=== PATIENT | male | born 1940 | race Caucasian/White ===

== ENCOUNTER 2017-08-08 17:17 | Inpatient (IN) | payer OTHER ==
--- NOTE | 2017-08-08 18:27 | EDPHY ---
H & P Stated Complaint: weakness la rm and leg 2-5 days /[place] here [place] Time Seen by Provider: 08/08/17 18:08 HPI/ROS: CHIEF COMPLAINT: Left arm and left leg weakness HISTORY OF PRESENT ILLNESS: 68-year-old male who drove here from [place] arriving this afternoon. Patient reports 2 days ago he developed weakness and "stiffness "in his left arm. He is also reporting difficulty walking with weakness in his left leg. He does report an occipital headache. Denies chest pain, shortness of breath, palpitation, vomiting, diarrhea, nausea , or falling. Denies difficulties with speech. Denies word-finding difficulties. Patient was otherwise well prior to leaving [place]. REVIEW OF SYSTEMS: Aside from elements discussed in the HPI, a comprehensive 10-point review of systems was reviewed and is negative. PAST MEDICAL HISTORY: Coronary artery disease, status post bypass. Gout. On Plavix. No history of stroke. SOCIAL HISTORY: Here with his family. Drove here from [place]. VITAL SIGNS Reviewed by me. GENERAL: Well-developed, well-nourished, pleasant, elderly male. Here with his family HEENT: Atraumatic. Eyes: PERRL, EOMI, no nystagmus. No icterus. No injection. Mouth: moist mucous membranes. No erythema or lesions. Neck: No meningitis. Nontender to palpation. No adenopathy. LUNGS: Clear to auscultation bilaterally, no wheezes, rhonchi or rales. CARDIAC: Regular rate and rhythm, no rubs, murmurs or gallops. ABDOMEN: Soft, nontender, nondistended, bowel sounds normal. BACK: No CVA tenderness. EXTREMITIES: No trauma. No edema. . NEURO: Alert and oriented, cranial nerves II through XII are intact. At rest, patient seems to have a slight right-sided facial droop. Motor strength 4 over 5 in the left upper extremity, 4 over 5 left lower extremity. Finger-nose and heel-ha are normal given the patient's weakness in the left arm and left leg. Normal sensation. No dysarthria. SKIN: Warm and dry, no rash. PSYCHIATRIC: Normal mentation, no agitation. - Personal History Current Tetanus/Diphtheria Vaccine: Unsure - Medical/Surgical History Hx Asthma: No Hx Chronic Respiratory Disease: No Hx Diabetes: No Hx Cardiac Disease: Yes Hx Renal Disease: No Hx Cirrhosis: No Hx Alcoholism: No Hx HIV/AIDS: No Hx Splenectomy or Spleen Trauma: No Other PMH: bypass/cardiac stents gout/back surgery/hip surgerry - Social History Smoking Status: Never smoked Constitutional: Initial Vital Signs Temperature (C) 36.5 C 08/08/17 17:28 Heart Rate 84 08/08/17 17:28 Respiratory Rate 17 08/08/17 17:28 Blood Pressure 122/78 H 08/08/17 17:28 O2 Sat (%) 94 08/08/17 17:28 O2 Delivery Mode Room Air Allergies/Adverse Reactions: No Known Allergies Allergy (Verified 08/08/17 20:09) Home Medications: Medication Instructions Recorded Allopurinol [Allopurinol 300 MG 300 mg PO DAILY 08/08/17 (RX)] Aspirin EC [Aspirin EC 81 mg (*)] 81 mg PO DAILY 08/08/17 Cholecalciferol Vit D3 [Vitamin D3 50,000 unit PO WE 08/08/17 (*)] Clopidogrel Bisulfate [Plavix (*)] 75 mg PO DAILY 08/08/17 Herbals/Supplements -Info Only 1 ea PO DAILY 08/08/17 Losartan Potassium [Cozaar 50 mg 50 mg PO DAILY 08/08/17 (*)] Metoprolol Tartrate [Lopressor 50 50 mg PO DAILY 08/08/17 mg (*)] Niacin [Niacin 500 mg (*)] 1,000 mg PO DAILY 08/08/17 Nitroglycerin [Nitrostat 0.4 mg 0.4 mg SL Q5M PRN 08/08/17 (*)] Simvastatin 10 mg PO DAILY 08/08/17 Medical Decision Making - Diagnostics Imaging Results: Imaging Impressions Chest X-Ray 08/08/17 18:23 Impression: No acute thoracic abnormality. Head CT 08/08/17 18:23 Impression: 1. No acute intracranial findings. If symptoms persist and clinical suspicion warrants, consider MRI. 2. Diffuse cerebral atrophy with periventricular and subcortical low attenuation consistent with chronic microvascular ischemic gliosis. 3. Probable sequela of rheumatoid in the upper cervical spine. Findings discussed with Petra Carpenter MD 08/08/2017 at 18:56. ED Course/Re-evaluation: 68-year-old male presenting to the emergency department with left arm and left leg weakness. The symptoms started 2 days ago. Evaluation emergency department included a head CT which was negative for acute findings. Patient's laboratory data is largely unremarkable. EKG demonstrates normal sinus rhythm. Patient's course was discussed with Dr. Combs from the hospitalist service. MRI was ordered from the emergency department. Discussion was held with the patient as well as family regarding his probable CVA and the workup which will be needed. Differential Diagnosis: Differential diagnoses the patient's presenting complaints was considered including but not limited to intracranial injury, TIA, ischemic cerebrovascular accident, hemorrhagic cerebrovascular accident, hypoglycemia, complex migraine , metastases, tumor, seizure, or electrolyte abnormality Consult/Admit Bed Type: Dr. Combs, U - Data Points Laboratory Results: Laboratory Results 08/08/17 18:25 08/08/17 18:25 08/08/17 08/08/17 08/08/17 18:25 18:25 18:25 WBC 8.46 10^3/uL 10^3/uL (3.80-9.50) RBC 4.83 10^6/uL 10^6/uL (4.40-6.38) Hgb 15.6 g/dL g/dL (13.7-17.5) Hct 44.1 % % (40.0-51.0) MCV 91.3 fL fL (81.5-99.8) MCH 32.3 pg pg (27.9-34.1) MCHC 35.4 g/dL g/dL (32.4-36.7) RDW 13.0 % % (11.5-15.2) Plt Count 230 10^3/uL 10^3/uL (150-400) MPV 8.8 fL fL (8.7-11.7) Neut % (Auto) 65.8 % % (39.3-74.2) Lymph % (Auto) 23.9 % % (15.0-45.0) [place] % (Auto) 7.8 % % (4.5-13.0) Eos % (Auto) 1.4 % % (0.6-7.6) Baso % (Auto) 0.9 % % (0.3-1.7) Nucleat RBC Rel Count 0.0 % % (0.0-0.2) Absolute Neuts (auto) 5.56 10^3/uL 10^3/uL (1.70-6.50) Absolute Lymphs (auto) 2.02 10^3/uL 10^3/uL (1.00-3.00) Absolute Monos (auto) 0.66 10^3/uL 10^3/uL (0.30-0.80) Absolute Eos (auto) 0.12 10^3/uL 10^3/uL (0.03-0.40) Absolute Basos (auto) 0.08 10^3/uL 10^3/uL (0.02-0.10) Absolute Nucleated RBC 0.00 10^3/uL 10^3/uL (0-0.01) Immature Gran % 0.2 % % (0.0-1.1) Immature Gran # 0.02 10^3/uL 10^3/uL (0.00-0.10) PT 13.0 SEC SEC (12.0-15.0) INR 0.99 (0.83-1.16) Sodium 135 mEq/L mEq/L (134-144) Potassium 4.3 mEq/L mEq/L (3.5-5.2) Chloride 103 mEq/L mEq/L (97-110) Carbon Dioxide 25 mEq/l mEq/l (22-31) Anion Gap 7 mEq/L L mEq/L (8-16) BUN 18 mg/dL mg/dL (7-23) Creatinine 0.8 mg/dL mg/dL (0.7-1.3) Estimated GFR > 60 Glucose 96 mg/dL mg/dL (70-100) Calcium 9.3 mg/dL mg/dL (8.5-10.4) Troponin I < 0.012 ng/mL ng/mL (0.000-0.034) Departure - Departure Disposition: [facility] Inpatient Acute Clinical Impression: Acute ischemic stroke Condition: Fair
[2017-08-08 18:33] LABS: % IMMATURE GRANULYOCYTES 0.2 % (0.0-1.1); ABSOLUTE IMMATURE GRANULOCYTES 0.02 10^3/uL (0.00-0.10); ADD DIFF? NO; ADD MORPH? NO; ADD SCAN? NO; ATYPICAL LYMPHOCYTE FLAG 0 (0-99); FRAGMENT RBC FLAG 0 (0-99); HEMATOCRIT 44.1 % (40.0-51.0); HEMOGLOBIN 15.6 g/dL (13.7-17.5); LEFT SHIFT FLG 0 (0-99); LIPEMIA HEMOLYSIS FLAG 90 (0-99); MEAN CELL HEMOGLOBIN 32.3 pg (27.9-34.1); MEAN CELL HEMOGLOBIN CONCENTR. 35.4 g/dL (32.4-36.7); MEAN CELL VOLUME 91.3 fL (81.5-99.8); MEAN PLATELET VOLUME 8.8 fL (8.7-11.7); PLATELET CLUMPS FLAG 10 (0-99); PLATELET COUNT 230 10^3/uL (150-400); RED BLOOD CELL COUNT 4.83 10^6/uL (4.40-6.38)
--- NOTE | 2017-08-08 18:34 | CPEKG ---
Heart Rate: 74 RR Interval: 811 P-R Interval: 152 QRSD Interval: 96 QT Interval: 392 QTC Interval: 435 P [place]: 47 QRS [place]: 2 T Wave [place]: 75 EKG Severity - BORDERLINE ECG - EKG Impression: SINUS RHYTHM EKG Impression: BORDERLINE T ABNORMALITIES, ANT-LAT LEADS Electronically Signed By: Des Beaulieu 08-Aug-2017 20:23:32
[2017-08-08 18:48] LABS: INR 0.99 (0.83-1.16)
[2017-08-08 18:50] LABS: ANION GAP 7 mEq/L (8-16); CALCIUM 9.3 mg/dL (8.5-10.4); CARBON DIOXIDE 25 mEq/l (22-31); CHLORIDE 103 mEq/L (97-110); CREATININE 0.8 mg/dL (0.7-1.3); GLOMERULAR FILTRATION RATE > 60; GLUCOSE 96 mg/dL (70-100); POTASSIUM 4.3 mEq/L (3.5-5.2); SODIUM 135 mEq/L (134-144)
[2017-08-08 19:02] LABS: TROPONIN I < 0.012 ng/mL (0.000-0.034)
[2017-08-08] MEDS ORDERED: ONDANSETRON 4 MG/2 ML VIAL IVP PRN (20:55)
[2017-08-08] MEDS ORDERED: ACETAMINOPHEN 325 MG TAB PO PRN (20:55)
[2017-08-08] MEDS ORDERED: ONDANSETRON DISINTEGRATING 4 MG TAB PO PRN (20:55)
[2017-08-08] MEDS ORDERED: NITROGLYCERIN 0.4 MG BTL SL PRN (21:00)
[2017-08-08] MEDS ORDERED: IOPAMIDOL (ISOVUE 370) 100 ML BTL IV ONE (21:04)
--- NOTE | 2017-08-08 21:40 | GHP ---
[f rep st] HISTORY AND PHYSICAL DATE OF ADMISSION: 08/08/2017 CHIEF COMPLAINT: Left-sided weakness. HISTORY OF PRESENT ILLNESS: This is a 76-year-old man, who was driving from [place] to [employer] over t he past few days. Yesterday, around noon, he noticed that his left arm seemed weak. He describes th at he has difficulty picking things up, as well as doing his buttons. He says that his left leg has been weak, but he tells me that this has been weak for some time, predating yesterday. He has a hist ory of heart disease, has had a CABG, as well as stents in the past. He has never had a history of a trial fibrillation. He did not have any headache, confusion, or difficulty speaking. PAST MEDICAL/SURGICAL HISTORY: 1. Coronary artery disease, status post CABG and stents. 2. Gout. 3. Right TRINI. 4. L-spine surgery x2. MEDICATIONS: Please see medication reconciliation. ALLERGIES: No known drug allergies. FAMILY HISTORY: His father of pancreatic cancer. SOCIAL HISTORY: He occasionally drinks alcohol. He does not smoke. REVIEW OF SYSTEMS: A 10-point review of systems is conducted and is negative except per HPI. PHYSICAL EXAMINATION: VITAL SIGNS: Blood pressure is 143/85, heart rate is 76, respiration rate 15, satting at 97% on room air. Temperature is 36.5. GENERAL: The patient is a pleasant man, who is a ccompanied by his daughter, resting comfortably, in no acute distress. HEENT: Shows him to be normo cephalic, atraumatic. CARDIOVASCULAR: Shows regular rate and rhythm. No murmurs, rubs, or gallops. PULMONARY: Shows lungs clear to auscultation bilaterally. ABDOMEN: Soft, nontender, nondistended . SKIN: Showed no rash. : Showed no [place]. NEUROLOGIC: Shows him to be alert and oriented x3. He is providing full history. Cranial nerves 2-12 are intact. Motor is diminished in his left upp er extremity compared to his right, and his left lower extremity compared to his right. He has left- sided pronator drift. Sensation to light touch is intact in his upper and lower extremities. PSYCHI ATRIC: Shows normal mood and affect. LABORATORY DATA: CBC is normal. INR 0.99. Troponin is negative. DATA: 1. I discussed this with Dr. Carpenter. 2. I reviewed his head CT. This shows nothing acute, diffuse atrophy, possibly RA sequelae in his s pine. 3. Chest x-ray, which I personally viewed and interpreted, shows sequelae of a CABG. 4. EKG, which I personally viewed and interpreted, shows sinus rhythm. IMPRESSION/PLAN: This is a 76-year-old man, who likely had a cerebrovascular accident yesterday. 1. Suspected cerebrovascular accident: We will perform a full stroke workup, including echocardiogr am, CT angio of his head and neck, telemetry monitoring. Evaluated by therapies. He has already pas sed his bedside swallow study. He will be seen by Neurology as well. He is already on mostly approp riate medications, including aspirin, Plavix, and statin for his heart disease. 2. Coronary artery disease, status post coronary artery bypass graft: Troponin is negative, not hav ing chest pain. Continue his medications. 3. Gout: Continue his allopurinol. /[id number]/MODL
[2017-08-09 06:39] LABS: % IMMATURE GRANULYOCYTES 0.3 % (0.0-1.1); ABSOLUTE IMMATURE GRANULOCYTES 0.02 10^3/uL (0.00-0.10); ADD DIFF? NO; ADD MORPH? NO; ADD SCAN? NO; ATYPICAL LYMPHOCYTE FLAG 0 (0-99); FRAGMENT RBC FLAG 0 (0-99); HEMATOCRIT 41.5 % (40.0-51.0); HEMOGLOBIN 14.7 g/dL (13.7-17.5); LEFT SHIFT FLG 0 (0-99); LIPEMIA HEMOLYSIS FLAG 90 (0-99); MEAN CELL HEMOGLOBIN 32.1 pg (27.9-34.1); MEAN CELL HEMOGLOBIN CONCENTR. 35.4 g/dL (32.4-36.7); MEAN CELL VOLUME 90.6 fL (81.5-99.8); MEAN PLATELET VOLUME 9.2 fL (8.7-11.7); PLATELET CLUMPS FLAG 0 (0-99); PLATELET COUNT 207 10^3/uL (150-400); RED BLOOD CELL COUNT 4.58 10^6/uL (4.40-6.38); RED CELL DISTRIBUTION WIDTH 12.9 % (11.5-15.2)
[2017-08-09 07:37] LABS: ALANINE AMINOTRANSFERASE 39 IU/L (21-72); ALBUMIN 3.3 g/dL (3.5-5.0); ALKALINE PHOSPHATASE 68 IU/L (38-126); ANION GAP 8 mEq/L (8-16); ASPARTATE AMINOTRANSFERASE 22 IU/L (17-59); BILIRUBIN,TOTAL 0.7 mg/dL (0.1-1.4); CALCIUM 8.8 mg/dL (8.5-10.4); CARBON DIOXIDE 24 mEq/l (22-31); CHLORIDE 108 mEq/L (97-110); CHOLESTEROL 138 mg/dL (140-220); CHOLESTEROL/HDL RATIO 3.54 RATIO (1.00-4.97); CREATININE 0.7 mg/dL (0.7-1.3); GLOMERULAR FILTRATION RATE > 60; GLUCOSE 94 mg/dL (70-100); HIGH DENSITY LIPOPROTEIN 39 mg/dL (40-65); LDL/HDL RATIO 2.18 RATIO (1.00-3.64); LOW DENSITY LIPOPROTEIN 85 mg/dL (80-100); NON-HIGH DENSITY LIPOPROTEIN 99 mg/dL (90-129); POTASSIUM 4.2 mEq/L (3.5-5.2); SODIUM 140 mEq/L (134-144); TOTAL PROTEIN 5.7 g/dL (6.3-8.2); TRIGLYCERIDE 70 mg/dL (40-150); VERY LOW DENSITY LIPOPROTEINS 14 mg/dL (8-25)
[2017-08-09] MEDS ORDERED: LOSARTAN POTASSIUM 50 MG TAB PO SCH (09:00)
[2017-08-09] MEDS ORDERED: METOPROLOL TARTRATE 50 MG TAB PO SCH (09:00)
[2017-08-09] MEDS ORDERED: PRAVASTATIN SODIUM 20 MG TAB PO SCH ×2 (09:00→15:38)
[2017-08-09] MEDS: CLOPIDOGREL BISULFATE 75 MG TAB PO SCH (10:23)
[2017-08-09] MEDS: NIACIN 500 MG TAB PO SCH (10:25)
[2017-08-09] MEDS: ALLOPURINOL 300 MG TAB PO SCH (10:25)
[2017-08-09] MEDS: ASPIRIN EC 81 MG TAB PO SCH (10:25)
[2017-08-09] MEDS: ENOXAPARIN 40 MG/0.4 ML SYR SC SCH (10:30)
--- NOTE | 2017-08-09 12:14 | NEUROPROG ---
Assessment: [id number] CC: Dr. Combs consulted neurology for left sided weakness. HPI: He was driving from [place] to [place], [place] over the past few days and noted on that his left arm seemed weak. He reported long-standing left leg weakness as well which was not new. He denied headache, confusion, or speaking difficulties. He was admitted to [facility] on 08/08/17 for further evaluation. Brain MRI w/o con showed no acute stroke or acute changes. It did show significant degenerative changes in the cervical spine concerning for rheumatoid arthritis. A head/neck CTA showed an apparent chronic occlusion of the left vertebral artery. I initially saw him on 08/09/17. He had left arm weakness which he said was new and left ankle weakness which he said was chronic. I ordered a C-spine MRI w/o con to further evaluate his left arm weakness. PMHx: CAD w/ CABG and stents, gout, R TRINI, L-spine surgery x 2 Home Meds: metoprolol, losartan, zocor 10 mg qd, plavix 75 mg qd, asa 81 mg qd, nitrogylcerin, niacin, allopurinol SHx: no tobacco FHx: pancreatic cancer ROS: Pt denied acute fever, total vision loss, active severe chest pain, respiratory failure, total body severe rash, total bowel/bladder incontinence, psychosis, active seizures, or active bleeding O: VS reviewed General: Alert Eyes: Fundoscopic exam not able to visualize optic disks CV: Heart RRR, no murmur, no carotid bruit Lungs: Clear to auscultation bilaterally, no rhonci or rales Neuro: - Mental: . Oriented x person/place/date . concentration appears normal . speech fluency/comprehension normal . memory appears normal . fund of knowledge appear intact - Cranial Nerves: . II: PERRL, VFFTC . III/IV/: EOMI, no nystagmus, normal smooth pursuits, no Ptosis . V: facial sensation intact to LT . VII: face symmetric to eye closure and smile . VIII: hearing intact to conversation . IX/X: uvula raises symmetrically . XI: SCM 5/5 B/L strength . XII: tongue protrudes midline w/nl strength - Motor: . Tone: normal tone in all 4 extrem . Strength: left arm weakness 4 / 5, left ankle weakness 4+/5; right arm/ leg normal strength - Reflexes: B/L bic/BR/patella 2/4 - Sensory: all 4 extrem intact to light touch - Coord: no ataxia noted - Gait: deferred Labs: 08/09/17- CBC wnl, CMP wnl, LDL 85 Rads: 08/08/17- Brain MRI w/o con: no acute stroke, mild atrophy, mod CMVD, changes consistent with rheumatoid arthritis at C1-2 (I personally visualized the images on 08/09/17) 08/08/17- CTA head/neck: diminutive left vertebral artery which is focally occluded in the V2 and V4 segments, likely chronic Assessment: 1. Transient Left Arm Weakness: Brain MRI shows no acute stroke and his left arm weakness has persisted. Concern for cervical myelopathy or radiculopathy so I will obtain a C-spine MRI. 2. Chronic Left Leg weakness in setting of prior Lumbar surgeries: appears to be a chronic condition, nothing acute to do as this time 3. Prior CABG for CAD 4. Chronic Left Vertebral Artery Occlusion: Recommend life-long stroke prevention measures to include intensive statin control (LDL < 70), H1AC< 7.0, bp < 140/90, and agree with dual platelet therapy (ASA/plavix). Plan: - 24 hour telemetry - TTE - C-spine MRI w/o con - given left vert occlusion, recommend working with PCM for blood pressure < 140 /90, H1AC < 7.0, and LDL < 70 - Recommend adjusting cholesterol medication for LDL goal < 70 - Continue plavix 75 mg qd and aspirin 81 mg qd - PT consult - F/U in neurology clinic 4-6 weeks after hospital discharge Objective: Vital Signs Temp Pulse Resp BP Pulse Ox 37.0 C 67 18 121/67 H 94 08/09/17 00:00 08/09/17 08:07 08/09/17 08:07 08/09/17 08:07 08/09/17 08:07 Laboratory Results 08/09/17 06:36 08/09/17 06:36 PT 13.0 SEC (12.0-15.0) 08/08/17 18:25 INR 0.99 (0.83-1.16) 08/08/17 18:25 Allergies/Adverse Reactions: No Known Allergies Allergy (Verified 08/08/17 20:09)
--- NOTE | 2017-08-09 13:00 | ECHO ---
[email or web address] [address] Main: [phone] Fax: Transthoracic Echocardiogram Name: NICOLE PEREZ MR#: [id number] Study Date: 08/09/2017 Study Time: 10:56 AM Date of : 1940 Age: 76 year(s) Height: 175.3 cm (69 in.) Weight: 82.55 kg (182 lb.) BSA: 1.98 m2 Gender: Male Examination: Echo Indication: ischemic stroke; r/o PFO and h/o CABG Image Quality: Technically Difficult Contrast: Requested by: Romeo Combs BP: 106 mmHg/52 mmHg Heart Rate: Rhythm: Indication: ischemic stroke; r/o PFO and h/o CABG Procedure Staff Internal Audit Director: Wanda Delgado Physician: Efrem Block Requesting Provider: Conclusions: Normal left ventricular systolic function left ventricular hypertrophy aortic valve sclerosis without significant flow abnormalities. Measurements: Chambers Valvular Assessment AV/MV Valvular Assessment TV/PV Normal Normal Normal Name Value Range Name Value Range Name Value Range Ao Inge (MM): 3.6 cm (2.2 cm-3.7 AV Vmax: 1.02 m/s (1 m/s-1.7 PV Vmax: 0.78 m/s (0.6 m/s-0.9 cm) m/s) m/s) IVSd (2D): 1.0 cm (0.6 cm-1.1 AV maxP mmHg ( - ) PV PGmax: 2 mmHg ( - ) cm) LVOT Vmax: 0.65 m/s (0.7 m/s-1.1 LVDd (2D): 3.6 cm (4.2 cm-5.9 m/s) cm) [place]LE (Vmax): 2.2 cm2 ( - ) LVDs (2D): 2.9 cm (2.1 cm-4 MV E Vmax: 0.36 m/s ( - ) cm) MV A Vmax: 0.44 m/s ( - ) LVPWd (2D): 1.0 cm (0.6 cm-1 MV E/A: 0.82 ( - ) cm) LVOTd 2.1 cm 2.1 cm mm LVEF (BP): 49 % (>=55 %) EF Range: 50-55 % Continued Measurements: Chambers Valvular Assessment AV/MV Name Value Name Value LADs Lon.3 cm MV DecTime: 222 m/s LA Area: 14.8 cm2 MV E/E' Septal: 6.30 LA Volume: 29 ml MV E/E' Lateral: 6.90 LA Volume Index: 14.6 ml/m2 Patient: NICOLE PEREZ Study Date: 08/09/2017 Page 1 of 2 10:56 AM RA Area: 14.8 cm2 Additional Vessels Name Value Ao Ascendin.6 cm Findings: Left Ventricle: Normal size left ventricle. Borderline concentric LV hypertrophy. Low normal left ventricular systolic function. The ejection fraction is estimated to be 50-55 %. Right Ventricle: Normal size right ventricle. Normal RV function. Left Atrium: The left atrium is normal in size. An agitated saline study was performed and was negative at rest and positive with Valsalva maneuver. Right Atrium: The right atrium is normal in size. Mitral Valve: There is mild thickening of the mitral valve leaflets. Trivial mitral valve regurgitation. Aortic Valve: The aortic valve is tri-leaflet. Mild aortic cusp calcification is noted. There is no aortic valve regurgitation. Tricuspid Valve: The tricuspid valve appears normal. There is no tricuspid valve regurgitation. Pulmonic Valve: Pulmonary valve not well visualized. Aorta: Normal size aortic root measuring 3.6 cm. Normal size ascending aorta measuring 3.6 cm. Pericardium: No pericardial effusion. (No Signature Object) Patient: NICOLE PEREZ Study Date: 08/09/2017 Page 2 of 2 10:56 AM [id number]
--- NOTE | 2017-08-09 15:45 | HOSPPROG ---
Hospitalist Progress Note Assessment/Plan: New patient encounter. Record reviewed 76 yo male with left sided are weakness admitted for stroke w/u. Stroke w/u has been negative including brain MRI. CTA did show Left vertebral focal occlusion which per Neurologist note, it is chronic. On imaging, there was some e/o RA on c1/c2 and an MRI of the cervical spine is pending. He continues to have left arm weakness but is slightly improved. Apparently, the weakness was transient and not present during Neuro's evaluation earlier. #Left arm weakness, etiology unclear -no e/o stroke -?Cervical Myelopathy vs radiculopathy -MRI cervical spine is pending #Chronic Left leg weakness #Chronic Left vertebral artery occlusion #CAD, s/p CABG #HLD, LDL 85. Reports on statin at current dose x several years. Plan: -PT/OT to see, per his report, he has not seen them -Increase Simvastatin to 30mg PO daily. LDL goal less than 70 -BP goal less than 140/90 -Check A1C -cont Aspirin and Plavix -change to inpatient, although anticipate discharge tomorrow Subjective: still with left sided arm weakness. No CP or SOB Objective: Vital Signs Temp Pulse Resp BP Pulse Ox 36.6 C 74 20 121/73 H 98 08/09/17 14:10 08/09/17 14:10 08/09/17 14:10 08/09/17 14:10 08/09/17 14:10 Laboratory Results 08/09/17 06:36 08/09/17 06:36 PT 13.0 SEC (12.0-15.0) 08/08/17 18:25 INR 0.99 (0.83-1.16) 08/08/17 18:25 - Physical Exam Constitutional: no apparent distress, appears nourished, not in pain Eyes: PERRL, anicteric sclera, EOMI Ears, Nose, Mouth, Throat: moist mucous membranes Cardiovascular: regular rate and rhythym, no murmur, rub, or gallop Respiratory: no respiratory distress, no rales or rhonchi, clear to auscultation Gastrointestinal: normoactive bowel sounds, soft, non-tender abdomen, no palpable masses Skin: warm (left arm weakness) Neurologic: AAOx3 Psychiatric: interacting appropriately, not anxious, not encephalopathic, thought process linear ICD10 Worksheet Patient Problems: Problems Problem Status Onset Acute ischemic stroke Acute
[2017-08-10 03:50] VITALS: O2SAT 94
[2017-08-10 06:25] LABS: ANION GAP 6 mEq/L (8-16); CALCIUM 8.7 mg/dL (8.5-10.4); CARBON DIOXIDE 24 mEq/l (22-31); CHLORIDE 110 mEq/L (97-110); CREATININE 0.8 mg/dL (0.7-1.3); GLOMERULAR FILTRATION RATE > 60; GLUCOSE 102 mg/dL (70-100); POTASSIUM 4.2 mEq/L (3.5-5.2); SODIUM 140 mEq/L (134-144)
[2017-08-10 07:28] VITALS: BP 117/70; PULSE 65; RESP 16; TEMP 97.8
--- NOTE | 2017-08-10 07:59 | NEUROPROG ---
Assessment: C-spine MRI showed severe stenosis as the likely cause of his left arm weakness so I consulted neurosurgery. They will see patient today. Objective: Vital Signs Temp Pulse Resp BP Pulse Ox 36.6 C 65 16 117/70 94 08/10/17 07:25 08/10/17 07:25 08/10/17 07:25 08/10/17 07:25 08/10/17 07:25 Laboratory Results 08/10/17 05:50 08/09/17 08/10/17 08/11/17 05:59 05:59 05:59 Intake Total 400 Balance 400 PT 13.0 SEC (12.0-15.0) 08/08/17 18:25 INR 0.99 (0.83-1.16) 08/08/17 18:25 Allergies/Adverse Reactions: No Known Allergies Allergy (Verified 08/08/17 20:09)
--- NOTE | 2017-08-10 09:43 | PDMN ---
Medical Necessity Medical necessity: change to IP; los >2 mn for continued workup of L arm weakness of unclear etiology r/o cervical myelopathy vs radiculopathy; requires PT/OT, med adjustment; comorbid CAD/CABG & HLD; per progress note & order
[2017-08-10] MEDS: ALLOPURINOL 300 MG TAB PO SCH (09:54)
[2017-08-10] MEDS: NIACIN 500 MG TAB PO SCH (09:54)
[2017-08-10] MEDS: CLOPIDOGREL BISULFATE 75 MG TAB PO SCH (09:55)
[2017-08-10] MEDS: ENOXAPARIN 40 MG/0.4 ML SYR SC SCH (09:55)
[2017-08-10] MEDS: ASPIRIN EC 81 MG TAB PO SCH (09:55)
--- NOTE | 2017-08-10 10:33 | HOSPPROG ---
Hospitalist Progress Note Assessment/Plan: 76 yo male with left sided are weakness admitted for stroke w/u. Stroke w/u has been negative including brain MRI. CTA did show Left vertebral focal occlusion which per Neurologist note, it is chronic. TTE unremarkable. On imaging, there was some e/o RA on c1/c2. MRI cervical spine shows severe stenosis at C1/C2. Awaiting a neurosurgery consult for recommendations going forward. #Left arm weakness, likely due to severe C1/C2 stenosis. No e/o of acute stroke -NS reccs pending #Chronic Left leg weakness #Chronic Left vertebral artery occlusion #CAD, s/p CABG -risk factor reduction -Statin -A1C pending -cont Plavix and Aspirin -BP goal less than 140/90 #HLD, LDL 85. Increased Simvastatin to 30mg po daily. LDL goal per Neuro is less than 70. Dispo: awaiting Neuro reccs. Subjective: still with left arm weakness. NS has been consulted. Awaiting reccs. No Cp or SOB. No N/V Objective: Vital Signs Temp Pulse Resp BP Pulse Ox 36.6 C 65 16 117/70 94 08/10/17 07:25 08/10/17 07:25 08/10/17 07:25 08/10/17 07:25 08/10/17 07:25 Laboratory Results 08/10/17 05:50 08/09/17 08/10/17 08/11/17 05:59 05:59 05:59 Intake Total 400 Balance 400 PT 13.0 SEC (12.0-15.0) 08/08/17 18:25 INR 0.99 (0.83-1.16) 08/08/17 18:25 - Physical Exam Constitutional: no apparent distress, appears nourished, not in pain Eyes: PERRL, anicteric sclera, EOMI Ears, Nose, Mouth, Throat: moist mucous membranes, hearing normal, ears appear normal, no oral mucosal ulcers Cardiovascular: regular rate and rhythym, no murmur, rub, or gallop Respiratory: no respiratory distress, no rales or rhonchi, clear to auscultation Gastrointestinal: normoactive bowel sounds Skin: warm Neurologic: AAOx3 Psychiatric: interacting appropriately, not anxious, not encephalopathic ICD10 Worksheet Patient Problems: Problems Problem Status Onset Acute ischemic stroke Acute
[2017-08-10 11:45] LABS: HEMOGLOBIN A1C 5.8 % (4.0-6.0)
--- NOTE | 2017-08-10 12:42 | NEUROPROG ---
Assessment: [id number] CC: F/U for left arm weakness, severe cervical stenosis Narrative Summary: He was driving from [place] to [place], [place] over the past few days and noted on that his left arm seemed weak. He reported long-standing left leg weakness as well which was not new. He denied headache, confusion, or speaking difficulties. He was admitted to [facility] on 08/08/17 for further evaluation. Brain MRI w/o con showed no acute stroke or acute changes. It did show significant degenerative changes in the cervical spine concerning for rheumatoid arthritis. A head/neck CTA showed an apparent chronic occlusion of the left vertebral artery. I initially saw him on 08/09/17. He had left arm weakness which he said was new and left ankle weakness which he said was chronic. I ordered a C-spine MRI w/o con to further evaluate his left arm weakness. HPI: F/U 08/10/17. The C-spine MRI showed severe C1/2 spinal stenosis which appears to be the likely cause of his arm weakness. I will ask if neurosurgery will take a look at him. He otherwise denied new complaints. PMHx: CAD w/ CABG and stents, gout, R TRINI, L-spine surgery x 2 SHx: no tobacco FHx: pancreatic cancer ROS: Pt denied acute fever, total vision loss, active severe chest pain, respiratory failure, total body severe rash, total bowel/bladder incontinence, psychosis, active seizures, or active bleeding Labs: 08/09/17- CBC wnl, CMP wnl, LDL 85 Rads: 08/08/17- Brain MRI w/o con: no acute stroke, mild atrophy, mod CMVD, changes consistent with rheumatoid arthritis at C1-2 (I personally visualized the images on 08/09/17) 08/08/17- CTA head/neck: diminutive left vertebral artery which is focally occluded in the V2 and V4 segments, likely chronic 08/09/17- C-spine MRI: 1. Upper spinal cord edema at the level of C1-C2 that appears increased secondary to severe spinal stenosis from thickening of the transverse ligament along the posterior margin of the dens lung with some mild thickening of the posterior ligaments along the posterior ring. The edema is more prominent to the left of midline. 2. Multilevel degenerative disk disease with findings most prominent at C5-C6 and at C6-C7 with associated spinal and neuroforaminal stenoses. 3. Diffuse facet hypertrophy throughout the cervical spine. This also contributes to neuroforaminal Stenoses. 08/09/17- TTE: No cardioembolic source seen Assessment: 1. Transient Left Arm Weakness: Brain MRI shows no acute stroke and his left arm weakness has persisted. C-spine MRI shows severe stenosis with cord edema so likely cause of symptoms. Neurosurgery consulted. 2. Chronic Left Leg weakness in setting of prior Lumbar surgeries: appears to be a chronic condition, nothing acute to do as this time 3. Prior CABG for CAD 4. Chronic Left Vertebral Artery Occlusion: Recommend life-long stroke prevention measures to include intensive statin control (LDL < 70), H1AC< 7.0, bp < 140/90, and agree with dual platelet therapy (ASA/plavix). Plan: - given left vert occlusion, recommend working with PCM for blood pressure < 140 /90, H1AC < 7.0, and LDL < 70 - Recommend adjusting cholesterol medication for LDL goal < 70 - Continue plavix 75 mg qd and aspirin 81 mg qd - F/U in neurology clinic 4-6 weeks after hospital discharge 35 min spent with patient, majority of time spent counseling on left arm weakness and probable cause. Objective: Vital Signs Temp Pulse Resp BP Pulse Ox 36.6 C 65 16 117/70 94 08/10/17 07:25 08/10/17 07:25 08/10/17 07:25 08/10/17 07:25 08/10/17 07:25 Laboratory Results 08/10/17 05:50 08/09/17 08/10/17 08/11/17 05:59 05:59 05:59 Intake Total 400 Balance 400 PT 13.0 SEC (12.0-15.0) 08/08/17 18:25 INR 0.99 (0.83-1.16) 08/08/17 18:25 Allergies/Adverse Reactions: No Known Allergies Allergy (Verified 08/08/17 20:09)
--- NOTE | 2017-08-10 13:09 | ASMTCMCOM ---
CM Note CM Note Notes: Patient admitted for L-sided weakness and r/o stroke. No stroke detected on imaging; patient does have evidence of cervical stenosis. Neurosurg consult pending. I spoke with patient, he splits his time between [place] and [facility] and stops in [place] to see his daughter mid-trip. He plans on staying with her after d/c for whatever duration he needs to. Her name is Melita ([phone], FREEDOM is Pat [phone]). D/C needs are TBD pending neurosurg consult and PT/OT evals. CM will follow. Date Signed: 08/10/2017 01:08 PM Electronically Signed By:Jane Moran RN
[2017-08-10] MEDS ORDERED: FLU VACC QS 2017-18 (3YR+)/PF 0.5 ML SYR (FLUARIX QUAD) IM ONE (15:38)
--- NOTE | 2017-08-10 15:45 | PDDCSUM ---
Discharge Summary Discharge Summary: 76 yo male traveling from [place] admitted with left sided are weakness and stroke w/u. Stroke w/u has been negative including brain MRI. CTA did show Left vertebral focal occlusion which per Neurologist note, it is chronic. TTE unremarkable. On imaging, there was some e/o RA on c1/c2. MRI cervical spine shows severe stenosis at C1/C2 which is likely the etiology of his left arm weakness. NS provided evaluation and it was recommended that the patient f/u in an outpatient setting. He has a hx of HTN and BP has been low to target. Losartan will be held. #Left arm weakness, likely due to severe C1/C2 stenosis. No e/o of acute stroke #Chronic Left leg weakness #Chronic Left vertebral artery occlusion #CAD, s/p CABG -risk factor reduction -Statin -A1C pending -cont Plavix and Aspirin -BP goal less than 140/90 #HLD, LDL 85. Increased Simvastatin to 30mg po daily. LDL goal per Neuro is less than 70. Exam: see progress note from today Discharge Meds: see med rec. Statin increased. total time spent on discharge is 35 minutes
--- NOTE | 2017-08-10 20:34 | GCON ---
[f rep st] CONSULTATION DATE OF CONSULTATION: 08/10/2017 REASON FOR CONSULTATION: Cervical stenosis with new onset left-sided weakness. HOSPITAL COURSE/HISTORY/MAJOR MEDICAL FINDINGS: Patient is a 76-year-old gentleman who presented to [facility] Emergency Room on 08/08 because he was concerned about having new stroke-like sympt oms. He states that he started having left arm and left leg weakness which he had never had before. He does have some neck pain but only when turning his head to the right. He denies any pain at neut ral or when turning his head to the left. He denies any right upper or right lower extremity weaknes s. He has noticed some difficulty with walking since he has been in the hospital. No weakness devel oped. But denies any other imbalance at baseline. He denies any loss of bowel or bladder control or any change in dexterity. Patient denies any numbness or tingling. Past medical history is significant for some lumbar stenosis as well. He did undergo a decompression for that back in [place] sometime ago but does not have any hardware in his lower back. REVIEW OF SYSTEMS: Negative other than what is stated in the HPI. Please see for pertinent negative s, parent positives. PAST MEDICAL HISTORY: History of lumbar stenosis; history of coronary artery disease, status post CA BG and stents; gout; right TRINI. SOCIAL HISTORY: Patient will occasionally have an alcoholic beverage. He has never smoked, nor does he use illicit drugs. FAMILY HISTORY: Significant for the patient's father dying of pancreatic cancer. ALLERGIES: No known drug allergies. MEDICATIONS: Allopurinol 300 mg 1 p.o. q. day, aspirin 81 mg 1 p.o. q. day, Plavix 75 mg 1 p.o. q. d ay, Cozaar 50 mg 1 p.o. q. day, metoprolol 50 mg 1 p.o. q. day, niacin 1000 mg 1 p.o. q. day, nystati n 0.4 mg sublingually q.a.m., simvastatin 10 mg 1 p.o. q. day. PHYSICAL EXAM: VITALS: BP 117/70, heart rate is 65, he is 94% on room air. Temp is 36.6. GENERAL: The patient is no acute distress. NEUROLOGIC: He is alert and oriented x3. Answers all questions appropriately. His affect is appropriate for the given situation. Cranial nerves 2-12 are grossly intact. EOMI and PERRLA. The patient is a 5/5 in his right upper extremity including his deltoids, triceps, biceps, wrist flexors, extensors, interossei, intrinsic supply chain manager. The patient's left upper extr emity, his deltoid is a 4- out of 5 with the remaining biceps, triceps, wrist flexors, extensors, gri p and interossei being a 5- out of 5. In the patient's right lower extremity is a 5/5 in his iliopso as, hamstrings, quadriceps, plantar flexion, dorsiflexion, EHL. In the patient's left lower extremit y, he has a 5- out of 5 in his iliopsoas, hamstrings, quadriceps, plantar flexion, dorsiflexion, EHL. Negative clonus. Negative Babinski bilaterally. The patient does have a positive Delarosa's on the left. Sensation is intact the bilateral upper and bilateral lower extremities. DIAGNOSTIC REVIEW: The patient underwent a brain MRI upon coming into the emergency room which demon strated moderate periventricular disease with erosive changes and pannus at the dens and moderate mas s effect on the craniocervical junction. CTA of the neck and head demonstrated a diminutive left vertebral artery which is focally occluded at the V2 and V4 segments, likely chronic. Cervical spine MRI demonstrated upper signal cord edema at the level of C1-C2 with severe spinal sten osis and thickening of the transverse ligament along the posterior margin of the dens with some mild thickening of the posterior ligaments along the posterior ring. There is edema to the left of midlin e. Shows some multilevel degenerative disk disease, most predominant at C5-6 and C6-7 with associate d spinal canal and neural foraminal narrowing. ASSESSMENT AND PLAN: Patient is a 76-year-old gentleman who presented to [facility] Emergency Room with new onset left-sided weakness. His cervical imaging does demonstrate a pannus at C1-C2 wi th cord signal changes and edema and stenosis at C1-C2. The patient is seen both by Dr. Nixon and my self. He is a complex surgical candidate given him being on Plavix and aspirin for his cardiac disea se as well as having a diminutive left-sided vertebral artery and a more medialized right-sided verte bral artery, making surgical intervention more complex. At this point in time, given the patient's s ymptoms, it is okay for him to discharge home and follow up with us as an outpatient. Discussed with the patient that he may ultimately require surgery for this. Dr. Nixon will discuss further treatme nt course and surgical approach with his neurosurgical partners. /[id number]/MODL
== END 2017-08-10 16:05 | disposition home or self-care (01) | DRG 552 ==
LOC: F2N 08-09 13:50 → OBSVTOIN 08-09 15:39
PROVIDERS: ADMIT Student in an Organized Health Care Education/Training Program; ATTEND Student in an Organized Health Care Education/Training Program
DX: M48.02 Spinal stenosis, cervical region (principal); I25.10 Atherosclerotic heart disease of native coronary artery without angina pectoris; M10.9 Gout, unspecified; I65.02 Occlusion and stenosis of left vertebral artery; Z95.1 Presence of aortocoronary bypass graft; Z95.5 Presence of coronary angioplasty implant and graft; Z96.641 Presence of right artificial hip joint; Z23 Encounter for immunization
CPT/HCPCS: 92523-GN; 97116-GP; 97162-GP; 97165-GO; G0008; G0378; G8978-GP-CJ; G8979-GP-CI; G8987-GO-CI; G8988-GO-CI; G9168-GO-CI; G9169-GN-CI; G9170-GN-CI; J1650; Q9967

== ENCOUNTER 2017-08-28 09:11 | Inpatient (IN) | payer OTHER, BC ==
[2017-08-28] MEDS ORDERED: ceFAZolin 2 GM/SWFI 2 GM/20 ML SYR IVP ONE ×2 (09:33→09:45)
[2017-08-28] MEDS ORDERED: GABAPENTIN 300 MG CAP PO ONE (09:33)
[2017-08-28] MEDS ORDERED: ACETAMINOPHEN 500 MG TAB PO ONE (09:33)
[2017-08-28] MEDS ORDERED: LR 1,000 ML IV ONE (09:35)
[2017-08-28] MEDS ORDERED: BUPIVACAINE 0.25% 30 ML SDV ONE ×2 (09:44→12:39)
[2017-08-28] MEDS ORDERED: BACITRACIN 50,000 UNITS/10 ML SYR IRR ONE (09:44)
[2017-08-28] MEDS ORDERED: SURGIFLO MATRIX KIT WITH THROMBIN TP ONE (09:45)
[2017-08-28] MEDS ORDERED: CHLORHEXIDINE GLUC HIBICLENS 118 ML BTL TP ONE (09:45)
[2017-08-28] MEDS ORDERED: THROMBIN (BOVINE) 5,000 UNIT VIAL TP ONE (09:46)
[2017-08-28] MEDS ORDERED: ROCURONIUM 50 MG/5 ML VIAL ONE (10:40)
[2017-08-28] MEDS ORDERED: LIDOCAINE 2% 5 ML SDV ONE (10:40)
[2017-08-28] MEDS ORDERED: REMIFENTANIL HCL 1 MG VIAL ONE (11:27)
[2017-08-28] MEDS ORDERED: fentaNYL 100 MCG/2 ML INJ ONE ×2 (11:27→11:50)
[2017-08-28] MEDS ORDERED: PROPOFOL/EMULSION 500 MG/50 ML BOTTLE IV ONE (11:27)
[2017-08-28] MEDS ORDERED: PROPOFOL 200 MG/20 ML VIAL ONE ×2 (11:27→12:20)
--- NOTE | 2017-08-28 11:49 | PDHPUP ---
History & Physical Update H&P update statement: This history and physical update is based on an assessment of the patient which was completed after admission or registration (within 24 hours), but prior to the surgery/procedure. H&P update: H&P reviewed & patient examined, no change in patient's condition since H&P completed
[2017-08-28] MEDS ORDERED: DEXAMETHASONE 4 MG/ML VIAL ONE (12:46)
[2017-08-28] MEDS ORDERED: NALOXONE HCL 0.4 MG/ML INJ IVP PRN (13:26)
[2017-08-28] MEDS ORDERED: fentaNYL 100 MCG/2 ML INJ IVP PRN (13:26)
[2017-08-28] MEDS ORDERED: LABETALOL HCL 50 MG/10 ML SYR IVP PRN (13:26)
[2017-08-28] MEDS ORDERED: ALBUTEROL 3 ML DEYVIAL IH PRN (13:26)
[2017-08-28] MEDS ORDERED: ONDANSETRON 4 MG/2 ML VIAL IVP PRN ×2 (13:26→14:12)
[2017-08-28] MEDS ORDERED: OXYCODONE/APAP 5/325 TAB PO PRN (13:26)
[2017-08-28] MEDS ORDERED: LR 500 ML IV PRN (13:26)
[2017-08-28] MEDS ORDERED: ACETAMINOPHEN 500 MG TAB PO PRN (13:26)
[2017-08-28] MEDS ORDERED: PROMETHAZINE HCL 25 MG/ML INJ IVP PRN (13:26)
--- NOTE | 2017-08-28 13:26 | PDANEPAE ---
ANE History of Present Illness presents for C1-2 laminectomy ANE Past Medical History - Cardiovascular History Hx Hypertension: Yes Hx Arrhythmias: No Hx Chest Pain: No Hx Coronary Artery / Peripheral Vascular Disease: Yes Hx CHF / Valvular Disease: No Hx Palpitations: No Cardiovascular History Comment: HYPERCHOLESTEROLEMIA - Pulmonary History Hx COPD: No Hx Asthma/Reactive Airway Disease: No Hx Recent Upper Respiratory Infection: No Hx Oxygen in Use at Home: No Hx Sleep Apnea: No Sleep Apnea Screening Result - Last Documented: Negative Pulmonary History Comment: ALLERGIES - Neurologic History Hx Cerebrovascular Accident: No Hx Seizures: No Hx Dementia: No - Endocrine History Hx Diabetes: No - Renal History Hx Renal Disorders: Yes Renal History Comment: KIDNEY STONES - LITHOTRIPSY - Liver History Hx Hepatic Disorders: No - Neurological & Psychiatric Hx Hx Neurological and Psychiatric Disorders: No - Cancer History Hx Cancer: Yes Cancer History Comment: R SCALP SKIN CA - Congenital Disorder History Hx Congenital Disorders: No - GI History Hx Gastrointestinal Disorders: No - Other Health History Other Health History: GOUT. OSTEOPOROSIS. SPINAL STENOSIS - Chronic Pain History Chronic Pain: No - Surgical History Prior Surgeries: CABG TRIPLE. STENTS X5. R TRINI. LUMBAR SURGERY ANE Review of Systems Review of systems is: negative Review of Systems: - Exercise capacity METS (RN): 3 METS ANE Patient History - Allergies Allergies/Adverse Reactions: No Known Allergies Allergy (Verified 08/08/17 20:09) - Home Medications Home medications: home medication list seen and reviewed Home Medications: Allopurinol [Allopurinol 300 MG (RX)] 300 mg PO DAILY 08/08/17 [Last Taken 08/07] Aspirin EC [Aspirin EC 81 mg (*)] 81 mg PO DAILY 08/08/17 [Last Taken 08/07/17] Cholecalciferol Vit D3 [Vitamin D3 (*)] 50,000 unit PO WE 08/08/17 [Last Taken 08/02/17] Clopidogrel Bisulfate [Plavix (*)] 75 mg PO DAILY 08/08/17 [Last Taken 08/21/17] Herbals/Supplements -Info Only 1 ea PO DAILY 08/08/17 [Last Taken 08/21/17] Metoprolol Tartrate [Lopressor 50 mg (*)] 50 mg PO DAILY 08/08/17 [Last Taken 07:00] Niacin [Niacin 500 mg (*)] 1,000 mg PO DAILY 08/08/17 [Last Taken 08/25/17] Nitroglycerin [Nitrostat 0.4 mg (*)] 0.4 mg SL Q5M PRN 08/08/17 [Last Taken Unknown] Simvastatin 10 mg PO DAILY 08/08/17 [Last Taken 08/28/17 07:00] Finasteride 08/23/17 [Last Taken 08/27/17] Losartan Potassium 08/23/17 [Last Taken 08/27/17 07:00] - NPO status NPO Since - Liquids (Date): 08/27/17 NPO Since - Liquids (Time): 23:00 NPO Since - Solids (Date): 08/27/17 NPO Since - Solids (Time): 23:00 - Anes Hx Anes Hx: no prior problems - Smoking Hx Smoking Status: Never smoked - Family Anes Hx Family Hx Anesthesia Complications: NEG ANE Labs/Vital Signs - Vital Signs Blood Pressure: 142/82 Heart Rate: 57 Respiratory Rate: 16 O2 Sat (%): 96 Height: 175.26 cm Weight: 81.647 kg ANE Physical Exam - Airway Neck exam: decreased ROM Mallampati Score: Class 2 Mouth exam: normal dental/mouth exam - Pulmonary Pulmonary: no respiratory distress - Cardiovascular Cardiovascular: regular rate and rhythym - ASA Status ASA Status: III ANE Anesthesia Plan Anesthesia Plan: general endotracheal anesthesia Lines/Monitors: arterial line Specialized Airway: video laryngoscope Urgent/Emergent Case: Elana ann completed preop but documented later for safe timely pt care
[2017-08-28] MEDS ORDERED: NITROGLYCERIN 0.4 MG BTL SL PRN (14:10)
[2017-08-28] MEDS ORDERED: LACTULOSE 20 GM/30 ML UDCUP PO PRN (14:12)
[2017-08-28] MEDS ORDERED: POLYETHYLENE GLYCOL 3350 17 GM PKT PO PRN (14:12)
[2017-08-28] MEDS ORDERED: BISACODYL 10 MG SUPP PR PRN (14:12)
[2017-08-28] MEDS ORDERED: MAGNESIUM HYDROXIDE 30 ML UDCUP PO PRN (14:12)
[2017-08-28] MEDS ORDERED: HYDROmorphONE/DILAUDID 1 MG/ML INJ IVP PRN (14:12)
[2017-08-28] MEDS ORDERED: ONDANSETRON DISINTEGRATING 4 MG TAB PO PRN (14:12)
[2017-08-28] MEDS ORDERED: diphenhydrAMINE 25 MG CAP PO PRN (14:12)
[2017-08-28] MEDS ORDERED: NS W/ 20 KCl/L 1,000 ML IV SCH (14:15)
--- NOTE | 2017-08-28 14:27 | POSTANESTH ---
Post Anesthetic Evaluation Cardiovascular Status: Normal, Stable Respiratory Status: Normal, Stable Level of Consciousness/Mental Status: Can Participate in Eval, Moderately Sleepy Pain Control: Adequate, Prn Tx Ordered Nausea/Vomiting Control: Adequate, Prn Tx Ordered Complications Possibly Related to Anesthesia: None Noted
--- NOTE | 2017-08-28 14:27 | NEUSURGPN ---
Date of Surgery: 08/28/17 Post Op Day: 0 Assessment/Plan: S: Patient in PACU. Stable with expected posterior neck pain. O: NAD, VSS PERRL, EOMI CN II-XII grossly intact No droop BUE/BLE 5/5 except LLE 4/5 dorsi/plantar Trace Delarosa's on left as was preop Sensation diminished hands/feet Incision c/d/i- steri strips A: 76 yo male sp C1/2 laminectomies for cervical stenosis with cord signal change and Left arm/leg weakness P: -Admit to med surg -Orders in -Advance diet as tolerated -Soft collar for comfort -PT/OT -May restart ASA tomorrow, Lovenox, may restart Plavix on POD #5 -Seen by Dr. Nixon in PACU Neuro Check Frequency: Q4 Urinary Catheter in Place: No - Physician Discussed Patient with Dr.: Nixon Patient Seen by Dr.: Nixon Neurosurgery Physical Exam - Vitals, I&O, Labs I and O 08/27/17 08/28/17 08/29/17 05:59 05:59 05:59 Weight 81.647 kg Vital Signs Temp Pulse Resp BP Pulse Ox 36.2 C 61 10 L 129/71 H 100 08/28/17 14:01 08/28/17 14:01 08/28/17 14:01 08/28/17 14:01 08/28/17 14:01 ICD10 Worksheet Patient Problems: Problems Problem Status Onset Acute ischemic stroke Acute
--- NOTE | 2017-08-28 14:29 | POSTOPPROG ---
Post Op Note Date of Operation: 08/28/17 Surgeon: Gerson Nixon Sales Enablement Consultant: [facility] Anesthesia: GET(General Endotracheal) Pre-op Diagnosis: Cervical stenosis with myelopathy Post-op Diagnosis: Cervical stenosis with myelopathy Procedure: C1/2 Laminectomies Inf/Abcess present in the surg proc area at time of surgery?: No Depth: Organ Space EBL: 50-100 Complications: None
--- NOTE | 2017-08-28 15:01 | GOP ---
[f rep st] OPERATIVE REPORT DATE OF OPERATION: 08/28/2017 SURGEON: Gerson Nixon MD DENTAL DETAIL REPRESENTATIVE: Maco Connors PA-C ANESTHESIA: General endotracheal. PREOPERATIVE DIAGNOSIS: Cervical myelopathy. POSTOPERATIVE DIAGNOSIS: Cervical myelopathy. PROCEDURE PERFORMED: 1. C1, C2 laminectomies. 2. Use of the operative microscope. 3. Intraoperative neurophysiological monitoring including somatosensory-evoked potentials, motor-lisa ked potentials, and free run EMG. FINDINGS: Successful C1-2 laminectomy SPECIMENS: None. ESTIMATED BLOOD LOSS: 25 cc. INDICATIONS: The patient is a 76-year-old man who presented with some increasing left arm and leg we akness. MRI of his cervical spine revealed cord signal change at C1-2 with what appears to be pannus around the C1-2 joint anteriorly and some compressive inflammatory looking tissue posteriorly as wel l. We have discussed the options extensively, both when he is in the hospital and in the clinic subs equently and presented the options of C1-2 fusion versus a trial of C1-2 partial laminectomies which would relieve the posterior compression and hopefully prevent him from worsening. He agreed to try t he lesser procedure first therefore, he presents electively today. DESCRIPTION OF PROCEDURE: After informed consent was obtained from the patient, the patient was brou ght to the operating room, and a formal time-out was performed, identifying the patient by name, [facility] record number, and date of . Preoperative antibiotics were given. The endotracheal tube wa s placed and general endotracheal anesthesia was smoothly induced. The monitoring leads were placed for somatosensory evoked and motor evoked potentials as well as EMG and baseline potentials were obta ined. The patient was then placed in the Rodas pins and turned to the prone position. All approp riate pressure points were padded and checked. The head was slightly flexed and the neck was extende d. A 2-1/2 cm incision was marked just about 1 cm inferior to the inion. The neck was then prepped and draped in the normal sterile fashion. Then, 10 cc of 0.25% Marcaine with epinephrine was infiltr ated in the skin for hemostasis. The skin incision was made using a 10 blade. The subcutaneous tiss ues were dissected using monopolar electrocautery. The fascia was opened in the midline and the avas cular plane between the strap muscles, was carefully dissected down to the C2 spinous process. Above this, the C1 arch was identified and the muscles were carefully detached from the C1 arch. The full C1 arch was exposed and the full lamina of C2 was also exposed but care was taken not to interrupt t he facet joints laterally to cause any further instability. At this point, the operative microscope was brought on the field, and the remainder of the procedure performed under high-power magnification . A lateral radiograph confirmed the appropriate level and then the high-speed drill was used to dri ll down the upper portion of the lamina of C2 and the inferior portion of the C1 arch. The inflammat ory tissue beneath the C1-2 joint was visualized and this was somewhat compressive. The Kerrison pun ches were used to underbite the bone getting a wide decompression under C1 and C2. All the inflammat ory tissue was removed and the dura was completely free. All bleeding was controlled with bipolar el ectrocautery. The bone edges were waxed generously and there was no further bleeding. The wound was copiously irrigated using bacitracin irrigation. The motor-evoked potentials, and somatosensory lisa ked potentials had improved slightly from the baseline values. At this point, the wound was inspecte d, there was no further bleeding. The fascia was closed in the midline using interrupted 0 Vicryl. The deep dermis was closed using interrupted 2-0 Vicryl. The skin was closed using Steri-Strips. St erile dressings were placed. The patient was awakened in the operating room where he was extubated a nd he was transferred to the PACU in stable condition. There were no operative complications. I was scrubbed for the entire procedure. DRAINS: None. FLUIDS AND URINE OTPUT: Per the anesthesia record. /[id number]/MODL
[2017-08-28] MEDS: oxyCODONE IR 5 MG TAB PO PRN ×2 (16:00→21:45)
[2017-08-28] MEDS: METHOCARBAMOL 750 MG TAB PO PRN ×2 (16:00→21:45)
[2017-08-28] MEDS: ceFAZolin 2 GM/DEXTROSE 100 ML IV SCH (21:40)
[2017-08-28] MEDS: SENNOSIDES/DOCUSATE SODIUM TAB PO SCH (21:45)
[2017-08-28] MEDS: FAMOTIDINE 20 MG TAB PO SCH (21:45)
[2017-08-28] MEDS ORDERED: ACETAMINOPHEN 500 MG TAB PO SCH (22:00)
[2017-08-29] MEDS: METHOCARBAMOL 750 MG TAB PO PRN ×2 (02:07→12:34)
[2017-08-29] MEDS: oxyCODONE IR 5 MG TAB PO PRN ×3 (02:07→18:13)
[2017-08-29] MEDS: ceFAZolin 2 GM/DEXTROSE 100 ML IV SCH (04:57)
[2017-08-29] MEDS: ASPIRIN EC 81 MG TAB PO SCH (08:10)
[2017-08-29] MEDS: METOPROLOL TARTRATE 50 MG TAB PO SCH (08:10)
[2017-08-29] MEDS: FAMOTIDINE 20 MG TAB PO SCH ×2 (08:10→21:08)
[2017-08-29] MEDS: PRAVASTATIN SODIUM 20 MG TAB PO SCH (08:11)
[2017-08-29] MEDS: SENNOSIDES/DOCUSATE SODIUM TAB PO SCH ×2 (08:12→21:08)
--- NOTE | 2017-08-29 08:31 | NEUSURGPN ---
Assessment/Plan: 76y/o male s/p C1 and C2 lamenectomy -Optimize pain management -Soft collar -PT/OT; patient was unsteady prior to surgery and may benefit from rehab post surgery -DVT prophx: TEDs, SCDs, Lovenox POD3 -Please notify NS with any change in neuro/motor exam -Patient was seen by Dr. Nixon and myself this morning Subjective: Some posterior neck pain. Denies any new arm pain. leg strength improved. Objective: NAD A&Ox3 MAEx4 5/5 and equal in BUE and BLE. Incision c/d/i - Physician Patient Seen by : Hussain Neurosurgery Physical Exam - Vitals, I&O, Labs I and O 08/28/17 08/29/17 08/30/17 05:59 05:59 05:59 Intake Total 4488 Output Total 1999 Balance 2488 Weight 81.647 kg Intake: Oral (ml) 2115 IV Intake (ml) 1450 IV Infused (ml) 923 NS W/ 20 KCl/L 1,000 ml @ 723 100 mls/hr IV CONT MARILOU Rx#:[id number] ceFAZolin 2 GM/DEXTROSE 200 100 ml @ 200 mls/hr IV Q8H MARILOU Rx#:[id number] Output: Urine (ml) 1950 Catheter 1000 Urinal 950 Estimated Blood Loss (ml) 50 Other: Intake Quantity Yes Sufficient Number of Voids Catheter 1 Urinal 2 Bladder Scan Volume (ml) Urinal 403 Vital Signs Temp Pulse Resp BP Pulse Ox 36.5 C 59 L 18 129/77 H 98 08/29/17 07:54 08/29/17 08:10 08/29/17 07:54 08/29/17 08:10 08/29/17 07:54 ICD10 Worksheet Patient Problems: Problems Problem Status Onset Acute ischemic stroke Acute
--- NOTE | 2017-08-29 08:31 | NEUSURGPN ---
Assessment/Plan: 76y/o male s/p C1 and C2 lamenectomy -Optimize pain management -Soft collar -PT/OT; patient was unsteady prior to surgery and may benefit from rehab post surgery -DVT prophx: TEDs, SCDs, Lovenox POD3 -Please notify NS with any change in neuro/motor exam -Patient was seen by Dr. Nixon and myself this morning Subjective: Some posterior neck pain. Denies any new arm pain. leg strength improved. Objective: NAD A&Ox3 MAEx4 5/5 and equal in BUE and BLE. Incision c/d/i - Physician Patient Seen by : Hussain Neurosurgery Physical Exam - Vitals, I&O, Labs I and O 08/28/17 08/29/17 08/30/17 05:59 05:59 05:59 Intake Total 4488 Output Total 1999 Balance 2488 Weight 81.647 kg Intake: Oral (ml) 2115 IV Intake (ml) 1450 IV Infused (ml) 923 NS W/ 20 KCl/L 1,000 ml @ 723 100 mls/hr IV CONT MARILOU Rx#:[id number] ceFAZolin 2 GM/DEXTROSE 200 100 ml @ 200 mls/hr IV Q8H MARILOU Rx#:[id number] Output: Urine (ml) 1950 Catheter 1000 Urinal 950 Estimated Blood Loss (ml) 50 Other: Intake Quantity Yes Sufficient Number of Voids Catheter 1 Urinal 2 Bladder Scan Volume (ml) Urinal 403 Vital Signs Temp Pulse Resp BP Pulse Ox 36.5 C 59 L 18 129/77 H 98 08/29/17 07:54 08/29/17 08:10 08/29/17 07:54 08/29/17 08:10 08/29/17 07:54 ICD10 Worksheet Patient Problems: Problems Problem Status Onset Acute ischemic stroke Acute
--- NOTE | 2017-08-29 08:31 | NEUSURGPN ---
Assessment/Plan: 76y/o male s/p C1 and C2 lamenectomy -Optimize pain management -Soft collar -PT/OT; patient was unsteady prior to surgery and may benefit from rehab post surgery -DVT prophx: TEDs, SCDs, Lovenox POD3 -Please notify NS with any change in neuro/motor exam -Patient was seen by Dr. Nixon and myself this morning Subjective: Some posterior neck pain. Denies any new arm pain. leg strength improved. Objective: NAD A&Ox3 MAEx4 5/5 and equal in BUE and BLE. Incision c/d/i - Physician Patient Seen by : Hussain Neurosurgery Physical Exam - Vitals, I&O, Labs I and O 08/28/17 08/29/17 08/30/17 05:59 05:59 05:59 Intake Total 4488 Output Total 1999 Balance 2488 Weight 81.647 kg Intake: Oral (ml) 2115 IV Intake (ml) 1450 IV Infused (ml) 923 NS W/ 20 KCl/L 1,000 ml @ 723 100 mls/hr IV CONT MARILOU Rx#:[id number] ceFAZolin 2 GM/DEXTROSE 200 100 ml @ 200 mls/hr IV Q8H MARILOU Rx#:[id number] Output: Urine (ml) 1950 Catheter 1000 Urinal 950 Estimated Blood Loss (ml) 50 Other: Intake Quantity Yes Sufficient Number of Voids Catheter 1 Urinal 2 Bladder Scan Volume (ml) Urinal 403 Vital Signs Temp Pulse Resp BP Pulse Ox 36.5 C 59 L 18 129/77 H 98 08/29/17 07:54 08/29/17 08:10 08/29/17 07:54 08/29/17 08:10 08/29/17 07:54 ICD10 Worksheet Patient Problems: Problems Problem Status Onset Acute ischemic stroke Acute
[2017-08-29] MEDS ORDERED: NON-FORMULARY NEW DRUG (Simvastatin [Simvastatin] 10 MG) PO SCH (09:00)
[2017-08-29] MEDS: LOSARTAN POTASSIUM 50 MG TAB PO SCH (09:27)
[2017-08-29] MEDS: FINASTERIDE 5 MG TAB PO SCH (09:27)
[2017-08-29] MEDS: ALLOPURINOL 300 MG TAB PO SCH (09:27)
[2017-08-29] MEDS: CALCIUM CARBONATE 500 MG TAB PO SCH (09:27)
--- NOTE | 2017-08-29 11:03 | ASMTCMCOM ---
CM Note CM Note Notes: Patient is POD #1 cervical lami. I spoke with patient who hopes to discharge to his daughter's home. His other daughter is flying in from [place] to help, as well. He feels that he will have good support at home and is amenable to homecare PT/OT, as well. Today's initial PT evmelvin suggests home with homecare, but CM will continue to evaluate. Current CM discharge plan: home (with daughters) and home PT/OT Date Signed: 08/29/2017 11:02 AM Electronically Signed By:Jane Moran RN
[2017-08-29] MEDS: NIACIN 500 MG TAB PO SCH (11:40)
--- NOTE | 2017-08-29 15:24 | ASMTCMCOM ---
CM Note CM Note Notes: After I spoke with patient, both PT and OT approached me recommending SNF. I called patient's daughter Melita to discuss. Melita was amenable to SNF ([facility]) if it was only a 2-4 day stay. I informed her that the facility would make that decision and that most patients stay at least one week. I encouraged her to call [facility] and speak with them directly. Melita then decided that patient would be well cared for at home by her sister, who is flying in from [place] with the sole intention of providing 24/7 care. We would augment this with home PT/OT. Tomorrow's PT/OT evals will provide more information, and CM will follow up with patient, Melita, and therapists to formulate a safe discharge plan. Date Signed: 08/29/2017 03:23 PM Electronically Signed By:Jane Moran RN
--- NOTE | 2017-08-29 15:24 | ASMTCMCOM ---
CM Note CM Note Notes: After I spoke with patient, both PT and OT approached me recommending SNF. I called patient's daughter Melita to discuss. Melita was amenable to SNF ([facility]) if it was only a 2-4 day stay. I informed her that the facility would make that decision and that most patients stay at least one week. I encouraged her to call [facility] and speak with them directly. Melita then decided that patient would be well cared for at home by her sister, who is flying in from [place] with the sole intention of providing 24/7 care. We would augment this with home PT/OT. Tomorrow's PT/OT evals will provide more information, and CM will follow up with patient, Melita, and therapists to formulate a safe discharge plan. Date Signed: 08/29/2017 03:23 PM Electronically Signed By:Jane Moran RN
--- NOTE | 2017-08-29 15:24 | ASMTCMCOM ---
CM Note CM Note Notes: After I spoke with patient, both PT and OT approached me recommending SNF. I called patient's daughter Melita to discuss. Melita was amenable to SNF ([facility]) if it was only a 2-4 day stay. I informed her that the facility would make that decision and that most patients stay at least one week. I encouraged her to call [facility] and speak with them directly. Melita then decided that patient would be well cared for at home by her sister, who is flying in from [place] with the sole intention of providing 24/7 care. We would augment this with home PT/OT. Tomorrow's PT/OT evals will provide more information, and CM will follow up with patient, Melita, and therapists to formulate a safe discharge plan. Date Signed: 08/29/2017 03:23 PM Electronically Signed By:Jane Moran RN
--- NOTE | 2017-08-30 07:17 | NEUSURGPN ---
Date of Surgery: 08/28/17 Post Op Day: 2 Assessment/Plan: Assessment: 76 y/o male s/p C1 and C2 lamenectomy POD #2 Plan -Optimize pain management-CPM -Soft collar as directed -PT/OT; patient was unsteady prior to surgery and may benefit from rehab post surgery-better now -pending placement to rehab/SNF -DVT prophx: TEDs, SCDs, Lovenox POD3 -Please notify NS with any change in neuro/motor exam -d/w Dr Nixon -call with any questions or concerns -pt understands and agrees Subjective: Awake and alert. No new complaints or concerns. No kwan/cp/sob/abd or gu complaints. No f/c/n/v/d. Objective: NAD A&Ox3 MAEx4 5/5 and equal in BUE and BLE except for 5-/5 to left tricep Incision c/d/i Neuro Check Frequency: per routine Urinary Catheter in Place: No - Physician Discussed Patient with : Hussain Neurosurgery Physical Exam - Vitals, I&O, Labs I and O 08/29/17 08/30/17 08/31/17 05:59 05:59 05:59 Intake Total 4488 860 Output Total 1999 1650 Balance 2488 -790 Weight 81.647 kg Intake: Oral (ml) 2115 860 IV Intake (ml) 1450 IV Infused (ml) 923 NS W/ 20 KCl/L 1,000 ml @ 723 100 mls/hr IV CONT MARILOU Rx#:[id number] ceFAZolin 2 GM/DEXTROSE 200 100 ml @ 200 mls/hr IV Q8H MARILOU Rx#:[id number] Output: Urine (ml) 1950 1650 Catheter 1000 Toilet 1400 Urinal 950 250 Estimated Blood Loss (ml) 50 Other: Intake Quantity Yes Yes Sufficient Number of Voids Catheter 1 Toilet 1 Urinal 2 1 Bladder Scan Volume (ml) Urinal 403 Vital Signs Temp Pulse Resp BP Pulse Ox 36.6 C 69 15 140/80 H 91 L 08/30/17 03:46 08/30/17 03:46 08/30/17 03:46 08/30/17 03:46 08/30/17 03:46 ICD10 Worksheet Patient Problems: Problems Problem Status Onset Acute ischemic stroke Acute
--- NOTE | 2017-08-30 07:17 | NEUSURGPN ---
Date of Surgery: 08/28/17 Post Op Day: 2 Assessment/Plan: Assessment: 76 y/o male s/p C1 and C2 lamenectomy POD #2 Plan -Optimize pain management-CPM -Soft collar as directed -PT/OT; patient was unsteady prior to surgery and may benefit from rehab post surgery-better now -pending placement to rehab/SNF -DVT prophx: TEDs, SCDs, Lovenox POD3 -Please notify NS with any change in neuro/motor exam -d/w Dr Nixon -call with any questions or concerns -pt understands and agrees Subjective: Awake and alert. No new complaints or concerns. No kwan/cp/sob/abd or gu complaints. No f/c/n/v/d. Objective: NAD A&Ox3 MAEx4 5/5 and equal in BUE and BLE except for 5-/5 to left tricep Incision c/d/i Neuro Check Frequency: per routine Urinary Catheter in Place: No - Physician Discussed Patient with : Hussain Neurosurgery Physical Exam - Vitals, I&O, Labs I and O 08/29/17 08/30/17 08/31/17 05:59 05:59 05:59 Intake Total 4488 860 Output Total 1999 1650 Balance 2488 -790 Weight 81.647 kg Intake: Oral (ml) 2115 860 IV Intake (ml) 1450 IV Infused (ml) 923 NS W/ 20 KCl/L 1,000 ml @ 723 100 mls/hr IV CONT MARILOU Rx#:[id number] ceFAZolin 2 GM/DEXTROSE 200 100 ml @ 200 mls/hr IV Q8H MARILOU Rx#:[id number] Output: Urine (ml) 1950 1650 Catheter 1000 Toilet 1400 Urinal 950 250 Estimated Blood Loss (ml) 50 Other: Intake Quantity Yes Yes Sufficient Number of Voids Catheter 1 Toilet 1 Urinal 2 1 Bladder Scan Volume (ml) Urinal 403 Vital Signs Temp Pulse Resp BP Pulse Ox 36.6 C 69 15 140/80 H 91 L 08/30/17 03:46 08/30/17 03:46 08/30/17 03:46 08/30/17 03:46 08/30/17 03:46 ICD10 Worksheet Patient Problems: Problems Problem Status Onset Acute ischemic stroke Acute
--- NOTE | 2017-08-30 07:17 | NEUSURGPN ---
Date of Surgery: 08/28/17 Post Op Day: 2 Assessment/Plan: Assessment: 76 y/o male s/p C1 and C2 lamenectomy POD #2 Plan -Optimize pain management-CPM -Soft collar as directed -PT/OT; patient was unsteady prior to surgery and may benefit from rehab post surgery-better now -pending placement to rehab/SNF -DVT prophx: TEDs, SCDs, Lovenox POD3 -Please notify NS with any change in neuro/motor exam -d/w Dr Nixon -call with any questions or concerns -pt understands and agrees Subjective: Awake and alert. No new complaints or concerns. No kwan/cp/sob/abd or gu complaints. No f/c/n/v/d. Objective: NAD A&Ox3 MAEx4 5/5 and equal in BUE and BLE except for 5-/5 to left tricep Incision c/d/i Neuro Check Frequency: per routine Urinary Catheter in Place: No - Physician Discussed Patient with : Hussain Neurosurgery Physical Exam - Vitals, I&O, Labs I and O 08/29/17 08/30/17 08/31/17 05:59 05:59 05:59 Intake Total 4488 860 Output Total 1999 1650 Balance 2488 -790 Weight 81.647 kg Intake: Oral (ml) 2115 860 IV Intake (ml) 1450 IV Infused (ml) 923 NS W/ 20 KCl/L 1,000 ml @ 723 100 mls/hr IV CONT MARILOU Rx#:[id number] ceFAZolin 2 GM/DEXTROSE 200 100 ml @ 200 mls/hr IV Q8H MARILOU Rx#:[id number] Output: Urine (ml) 1950 1650 Catheter 1000 Toilet 1400 Urinal 950 250 Estimated Blood Loss (ml) 50 Other: Intake Quantity Yes Yes Sufficient Number of Voids Catheter 1 Toilet 1 Urinal 2 1 Bladder Scan Volume (ml) Urinal 403 Vital Signs Temp Pulse Resp BP Pulse Ox 36.6 C 69 15 140/80 H 91 L 08/30/17 03:46 08/30/17 03:46 08/30/17 03:46 08/30/17 03:46 08/30/17 03:46 ICD10 Worksheet Patient Problems: Problems Problem Status Onset Acute ischemic stroke Acute
[2017-08-30 08:03] VITALS: RESP 14
[2017-08-30] MEDS ORDERED: ENOXAPARIN 40 MG/0.4 ML SYR SC SCH (09:00)
[2017-08-30] MEDS ORDERED: CHOLECALCIFEROL VIT D3 50,000 UNIT CAP PO SCH (09:00)
[2017-08-30] MEDS: ASPIRIN EC 81 MG TAB PO SCH (09:49)
[2017-08-30] MEDS: FINASTERIDE 5 MG TAB PO SCH (09:49)
[2017-08-30] MEDS: oxyCODONE IR 5 MG TAB PO PRN (09:49)
[2017-08-30] MEDS: SENNOSIDES/DOCUSATE SODIUM TAB PO SCH (09:49)
[2017-08-30] MEDS: METHOCARBAMOL 750 MG TAB PO PRN (09:49)
[2017-08-30] MEDS: NIACIN 500 MG TAB PO SCH (09:50)
[2017-08-30] MEDS: CALCIUM CARBONATE 500 MG TAB PO SCH (09:50)
[2017-08-30] MEDS: LOSARTAN POTASSIUM 50 MG TAB PO SCH (09:50)
[2017-08-30] MEDS: PRAVASTATIN SODIUM 20 MG TAB PO SCH (09:51)
[2017-08-30] MEDS: ALLOPURINOL 300 MG TAB PO SCH (09:51)
[2017-08-30] MEDS: FAMOTIDINE 20 MG TAB PO SCH (09:51)
[2017-08-30] MEDS: METOPROLOL TARTRATE 50 MG TAB PO SCH (09:51)
[2017-08-30 11:45] VITALS: BP 113/79; PULSE 83; TEMP 97.9; O2SAT 94
--- NOTE | 2017-08-30 14:35 | PDIAF ---
- Diagnosis Diagnosis: s/p cervical laminectomy Code Status: Full Code - Medication Management Discharge Medications: Medications to Continue on Transfer Allopurinol [Allopurinol 300 MG (RX)] 300 mg PO DAILY 08/08/17 [Last Taken 08/28] Aspirin EC [Aspirin EC 81 mg (*)] 81 mg PO DAILY 08/08/17 [Last Taken 08/21/17] Cholecalciferol Vit D3 [Vitamin D3 (*)] 50,000 unit PO WE 08/08/17 [Last Taken 08/23/17] Herbals/Supplements -Info Only 1 ea PO DAILY 08/08/17 [Last Taken 08/21/17] Metoprolol Tartrate [Lopressor 50 mg (*)] 50 mg PO DAILY 08/08/17 [Last Taken 07:00] Niacin [Niacin 500 mg (*)] 1,000 mg PO DAILY 08/08/17 [Last Taken 08/25/17] Nitroglycerin [Nitrostat 0.4 mg (*)] 0.4 mg SL Q5M PRN 08/08/17 [Last Taken Unknown] Simvastatin 20 mg PO DAILY 08/08/17 [Last Taken 08/07/17] Finasteride [Proscar 5 MG (*)] 5 mg PO DAILY 08/23/17 [Last Taken Unknown] Losartan Potassium [Cozaar 50 mg (*)] 50 mg PO DAILY 08/23/17 [Last Taken Unknown] Calcium Carbonate [Oyster Shell Calcium 500 mg (*)] 500 mg PO DAILY 08/28/17 [ Last Taken Unknown] Methocarbamol [Robaxin 750 mg (*)] 750 mg PO QID PRN #60 tab 08/30/17 [Last Taken Unknown] Sennosides/Docusate Sodium [Senokot-S] 1 - 2 tab PO BID #30 tab 08/30/17 [Last Taken Unknown] oxyCODONE IR [Oxycodone Ir (*)] 5 - 10 mg PO Q4HRS PRN #60 tab 08/30/17 [Last Taken Unknown] [facility] Antibiotics: none Discharge Medications: Refer to the Discharge Home Medication list for PRN reason. PICC Care - Routine: N/A - Orders Services needed: Home Care, Registered Nurse, Physical Therapy, Occupational Therapy Home Care Face to Face: I certify that this patient was under my care and that I had the required [id number] encounter meeting the encounter requirements on the discharge day. My findings support the fact that the patient is homebound as defined in Home Care Face to Face Continued: CMS Chapter 7 Medicare Benefits Manual 30.1.1 , The condition of the patient is such that there exists a normal inability to leave home and consequently, leaving home would require a considerable and taxing effort. Diet Recommendation: no restrictions on diet Diet Texture: Regular Texture Diet Ayad Stockings Discontinue Date: when walking 100-200 yrds 2-3x per day Activity/Weight Bearing Restrictions: no heavy lifting - Follow Up Care Current Providers and Referrals: NONE *PRIMARY CARE P,. [Primary Care Provider] - Gerson Nixon MD [Medical Doctor] - (follow up in 2-3 weeks for a recheck)
--- NOTE | 2017-08-30 16:07 | ASMTCMCOM ---
CM Note CM Note Notes: Pt medically stable for d/c home w [facility] and family support. Pt not interested in SNF which is therapy rec. Pt dghtr is present and reports pt other dghtr is flying in this evening for additional support. Date Signed: 08/30/2017 04:06 PM Electronically Signed By:JESS Hurd
--- NOTE | 2017-08-30 16:08 | ASDISCHSUM ---
Discharge Information Plan Status:Home with Home Health Medically Cleared to Leave: Discharge Date: D/C Disposition:Home Health Service ADT D/C Disposition:Home Health Service Projected Discharge Date:08/30/2017 11:00 AM Transportation at D/C: Discharge Delay Reason: Follow-Up Date:08/30/2017 11:00 AM Discharge Slot: Final Diagnosis: Placement Information Referral Type:*Group Home/SNF Referral ID:[id number] Provider Name: Address 1: Phone Number: Address 2: Fax Number: City: Selection Factors: State: Referral Type:*Home Health Care Services Referral ID:[id number] Provider Name:Malinda Granda Address 1[address] [place] [address] Phone Number: Address 2: Fax Number: [facility]:[place] Selection Factors: State:[place] Patient Contact Information Contact Name:JOSEPH Relationship:Daughter Address:[address] [facility] Work Phone: [facility]:[place] Alternate Phone: [facility]/Zip Code:[place] [address] Email: Financial Information Financial Class: Primary Plan Desc:MEDICARE INPATIENT Primary Plan Number:[id number] Secondary Plan Desc: OUT OF [facility] Secondary Plan Number:[id number] Assessment Information [facility] CM Progress Note CM Note CM Note Notes: Patient is POD #1 cervical lami. I spoke with patient who hopes to discharge to his daughter's home. His other daughter is flying in from [place] to help, as well. He feels that he will have good support at home and is amenable to homecare PT/OT, as well. Today's initial PT eval suggests home with homecare, but CM will continue to evaluate. Current CM discharge plan: home (with daughters) and home PT/OT Date Signed: 08/29/2017 11:02 AM Electronically Signed By:Jane Moran RN [facility] CM Progress Note CM Note CM Note Notes: After I spoke with patient, both PT and OT approached me recommending SNF. I called patient's daughter Melita to discuss. Melita was amenable to SNF ([facility]) if it was only a 2-4 day stay. I informed her that the facility would make that decision and that most patients stay at least one week. I encouraged her to call [facility] and speak with them directly. Melita then decided that patient would be well cared for at home by her sister, who is flying in from [place] with the sole intention of providing 22/05 care. We would augment this with home PT/OT. Tomorrow's PT/OT evals will provide more information, and CM will follow up with patient, Melita, and therapists to formulate a safe discharge plan. Date Signed: 08/29/2017 03:23 PM Electronically Signed By:Jane Moran RN [facility] CM Progress Note CM Note CM Note Notes: Pt medically stable for d/c home w [facility] and family support. Pt not interested in SNF which is therapy rec. Pt dghtr is present and reports pt other dgr is flying in this evening for additional support. Date Signed: 08/30/2017 04:06 PM Electronically Signed By:JESS Hurd Intervention Information
--- NOTE | 2017-08-30 16:08 | ASDISCHSUM ---
Discharge Information Plan Status:Home with Home Health Medically Cleared to Leave: Discharge Date: D/C Disposition:Home Health Service ADT D/C Disposition:Home Health Service Projected Discharge Date:08/30/2017 11:00 AM Transportation at D/C: Discharge Delay Reason: Follow-Up Date:08/30/2017 11:00 AM Discharge Slot: Final Diagnosis: Placement Information Referral Type:*Halfway/SNF Referral ID:[id number] Provider Name: Address 1: Phone Number: Address 2: Fax Number: City: Selection Factors: State: Referral Type:*Home Health Care Services Referral ID:[id number] Provider Name:Malinda Granda Address 1[address] Phone Number: Address 2: Fax Number: [facility]:[place] Selection Factors: State:[place] Patient Contact Information Contact Name:JOSEPH Relationship:Daughter Address:[address] [facility] Work Phone: [facility]:[place] Alternate Phone: [facility]/Zip Code:[place] [address] Email: Financial Information Financial Class: Primary Plan Desc:MEDICARE INPATIENT Primary Plan Number:[id number] Secondary Plan Desc: OUT OF [facility] Secondary Plan Number:[id number] Assessment Information [facility] CM Progress Note CM Note CM Note Notes: Patient is POD #1 cervical lami. I spoke with patient who hopes to discharge to his daughter's home. His other daughter is flying in from [place] to help, as well. He feels that he will have good support at home and is amenable to homecare PT/OT, as well. Today's initial PT eval suggests home with homecare, but CM will continue to evaluate. Current CM discharge plan: home (with daughters) and home PT/OT Date Signed: 08/29/2017 11:02 AM Electronically Signed By:Jane Moran RN [facility] CM Progress Note CM Note CM Note Notes: After I spoke with patient, both PT and OT approached me recommending SNF. I called patient's daughter Melita to discuss. Melita was amenable to SNF ([facility]) if it was only a 2-4 day stay. I informed her that the facility would make that decision and that most patients stay at least one week. I encouraged her to call [facility] and speak with them directly. Melita then decided that patient would be well cared for at home by her sister, who is flying in from [place] with the sole intention of providing 22/05 care. We would augment this with home PT/OT. Tomorrow's PT/OT evals will provide more information, and CM will follow up with patient, Melita, and therapists to formulate a safe discharge plan. Date Signed: 08/29/2017 03:23 PM Electronically Signed By:Jane Moran RN [facility] CM Progress Note CM Note CM Note Notes: Pt medically stable for d/c home w [facility] and family support. Pt not interested in SNF which is therapy rec. Pt dghtr is present and reports pt other dgr is flying in this evening for additional support. Date Signed: 08/30/2017 04:06 PM Electronically Signed By:JESS Hurd Intervention Information
--- NOTE | 2017-08-30 16:08 | ASDISCHSUM ---
Discharge Information Plan Status:Home with Home Health Medically Cleared to Leave: Discharge Date: D/C Disposition:Home Health Service ADT D/C Disposition:Home Health Service Projected Discharge Date:08/30/2017 11:00 AM Transportation at D/C: Discharge Delay Reason: Follow-Up Date:08/30/2017 11:00 AM Discharge Slot: Final Diagnosis: Placement Information Referral Type:*Correction/SNF Referral ID:[id number] Provider Name: Address 1: Phone Number: Address 2: Fax Number: City: Selection Factors: State: Referral Type:*Home Health Care Services Referral ID:[id number] Provider Name:Malinda Granda Address 1[address] Phone Number: Address 2: Fax Number: [facility]:[place] Selection Factors: State:[place] Patient Contact Information Contact Name:JOSEPH Relationship:Daughter Address:[address] [facility] Work Phone: [facility]:[place] Alternate Phone: [facility]/Zip Code:[place] [address] Email: Financial Information Financial Class: Primary Plan Desc:MEDICARE INPATIENT Primary Plan Number:[id number] Secondary Plan Desc: OUT OF [facility] Secondary Plan Number:[id number] Assessment Information [facility] CM Progress Note CM Note CM Note Notes: Patient is POD #1 cervical lami. I spoke with patient who hopes to discharge to his daughter's home. His other daughter is flying in from [place] to help, as well. He feels that he will have good support at home and is amenable to homecare PT/OT, as well. Today's initial PT eval suggests home with homecare, but CM will continue to evaluate. Current CM discharge plan: home (with daughters) and home PT/OT Date Signed: 08/29/2017 11:02 AM Electronically Signed By:Jane Moran RN [facility] CM Progress Note CM Note CM Note Notes: After I spoke with patient, both PT and OT approached me recommending SNF. I called patient's daughter Melita to discuss. Melita was amenable to SNF ([facility]) if it was only a 2-4 day stay. I informed her that the facility would make that decision and that most patients stay at least one week. I encouraged her to call [facility] and speak with them directly. Melita then decided that patient would be well cared for at home by her sister, who is flying in from [place] with the sole intention of providing 22/05 care. We would augment this with home PT/OT. Tomorrow's PT/OT evals will provide more information, and CM will follow up with patient, Melita, and therapists to formulate a safe discharge plan. Date Signed: 08/29/2017 03:23 PM Electronically Signed By:Jane Moran RN [facility] CM Progress Note CM Note CM Note Notes: Pt medically stable for d/c home w [facility] and family support. Pt not interested in SNF which is therapy rec. Pt dghtr is present and reports pt other dgr is flying in this evening for additional support. Date Signed: 08/30/2017 04:06 PM Electronically Signed By:JESS Hurd Intervention Information
== END 2017-08-30 16:05 | disposition home health service (06) | DRG 520 ==
LOC: F3N 09:11
PROVIDERS: ADMIT Neurological Surgery; ATTEND Neurological Surgery
DX: M47.12 Other spondylosis with myelopathy, cervical region (principal); I25.10 Atherosclerotic heart disease of native coronary artery without angina pectoris; I10 Essential (primary) hypertension; E78.00 Pure hypercholesterolemia, unspecified; R09.89 Other specified symptoms and signs involving the circulatory and respiratory systems
CPT/HCPCS: 97116-GP; 97161-GP; 97166-GO; 97530-GP; 97535-GO; G8978-GP-CJ; G8979-GP-CI; G8980-GP-CI; G8987-GO-CJ; G8988-GO-CI; G8989-GO-CJ; J0171; J0690; J1100; J1650; J2704; J3010